=== PATIENT | female | born 1940 | race Asian ===

== ENCOUNTER 2018-09-21 09:15 | Emergency (ER) | payer MEDICARE, OTHER ==
[~2018-09-21] VITALS: Ht 152.4 cm; Wt 70.0 kg
[2018-09-21 09:21] VITALS: Ht 152.4 cm; Wt 70.0 kg
--- NOTE | 2018-09-21 09:28 | ERD ---
ER Documentation Chief Complaint Chief Complaint cp x 4 days HPI This 70-year-old female presents for evaluation of chest pain which is left- sided for about the last 4 days. She had a nuclear stress test done in 2016 which was negative, she denies any hemoptysis, or leg swelling. Her chest pain is currently resolved. She denies fever. There are no alleviating or aggravating factors. The discomfort has lasted hours, and then resolved. ROS All systems reviewed and are negative except as per history of present illness. Medications Home Meds Reported Medications Nitroglycerin* (Nitrostat*) 0.4 Mg Tab.subl, 0.4 MG SL Q5MIN PRN for CHEST PAIN, BOTTLE 09/21/18 Pravastatin Sodium* (Pravastatin Sodium*) 40 Mg Tablet, 40 MG PO HS, TAB 09/21/18 Ropinirole Hcl* (Ropinirole Hcl*) 1 Mg Tablet, 1 MG PO HS, TAB 09/21/18 Amlodipine Besylate* (Amlodipine Besylate*) 2.5 Mg Tablet, 2.5 MG PO DAILY, #30 TAB 09/21/18 Losartan-Hydrochlorothiazide (Losartan-HCTZ) 100-12.5 Mg Tab, 1 TAB PO DAILY, TAB 09/21/18 Aspirin* (Aspirin* Chew) 81 Mg Tab.chew, 81 MG PO DAILY, TAB.CHEW 09/21/18 Allergies Allergies: Coded Allergies: No Known Allergy (Unverified , 09/21/18) Physical Exam Vitals Vital Signs Date Temp Pulse Resp B/P (MAP) Pulse Ox O2 O2 Flow FiO2 Time Delivery Rate 09/21/18 98.1 80 18 226/88 99 09:21 (134) Physical Exam Const: No acute distress Head: Atraumatic Eyes: Normal Conjunctiva ENT: Normal External Ears, Nose and Mouth. Neck: Full range of motion. No meningismus. Resp: Clear to auscultation bilaterally Cardio: Regular rate and rhythm, no murmurs Abd: Soft, non tender, non distended. Normal bowel sounds Skin: No petechiae or rashes Back: No midline or flank tenderness Ext: No cyanosis, or edema Neur: Awake and alert Psych: Normal Mood and Affect Result Diagram: 09/21/18 0945 09/21/18 0945 Results 24 hrs Laboratory Tests Test 09/21/18 09:45 White Blood Count 4.4 10^3/ul Red Blood Count 3.91 10^6/ul Hemoglobin 12.0 g/dl Hematocrit 36.2 % Mean Corpuscular Volume 92.6 fl Mean Corpuscular Hemoglobin 30.7 pg Mean Corpuscular Hemoglobin Concent 33.1 g/dl Red Cell Distribution Width 12.1 % Platelet Count 177 10^3/UL Mean Platelet Volume 10.5 fl Immature Granulocytes % 0.000 % Neutrophils % 63.9 % Lymphocytes % 27.5 % Monocytes % 5.9 % Eosinophils % 1.8 % Basophils % 0.9 % Nucleated Red Blood Cells % 0.0 /100WBC Immature Granulocytes # 0.000 10^3/ul Neutrophils # 2.8 10^3/ul Lymphocytes # 1.2 10^3/ul Monocytes # 0.3 10^3/ul Eosinophils # 0.1 10^3/ul Basophils # 0.0 10^3/ul Nucleated Red Blood Cells # 0.0 10^3/ul Prothrombin Time 12.9 Sec Prothrombin Time Ratio 1.0 INR International Normalized Ratio 0.96 Sodium Level 142 mmol/L Potassium Level 3.8 mmol/L Chloride Level 108 mmol/L Carbon Dioxide Level 24 mmol/L Anion Gap 10 Blood Urea Nitrogen 21 mg/dl Creatinine 0.82 mg/dl Est Glomerular Filtrat Rate mL/min mL/min Glucose Level 182 mg/dl Calcium Level 9.3 mg/dl Total Bilirubin 0.4 mg/dl Direct Bilirubin 0.00 mg/dl Indirect Bilirubin 0.4 mg/dl Aspartate Amino Transf (AST/SGOT) 31 IU/L Alanine Aminotransferase (ALT/SGPT) 32 IU/L Alkaline Phosphatase 52 IU/L Troponin I < 0.012 ng/ml B-Type Natriuretic Peptide 270 PG/ML Total Protein 7.4 g/dl Albumin 4.3 g/dl Globulin 3.10 g/dl Albumin/Globulin Ratio 1.38 Procedures/MDM This is a 70-year-old female presents for evaluation of 4 days of chest pain. As noted above she had a cardiac workup with a nuclear stress test done in 2016 which was negative. Her cardiac workup including troponin x2 were both negative, and her EKG appears the same as her previous one. I offered her admission for further cardiac workup, however she preferred to follow-up with her primary care doctor who she actually has an appointment with tomorrow. Given this option, she will be discharged home, with strict return precautions, advised to return for any changes or worsening chest pain. CBC: no e/o of systemic infection or severe anemia CMP: no e/o severe acidosis, renal failure, diabetic ketoacidosis, liver disease Lipase: no e/o pancreatitis PT/INR: normal coagulation Troponin: no e/o acute ischemia Chest X-ray 1V Interpreted by me: Soft Tissue: No acute abnormalities Bones: No acute abnormalities Mediastinum/Cardiac Silhouette/Lungs: No acute abnormalities EKG: Rate/Rhythm: Normal Sinus Rhythm Intervals: Normal QRS, ST, T-waves: There are diffuse ST depressions noted, when compared with EKG from 2016 there are no changes. Impression: No evidence of ischemia or arrhythmia Departure Diagnosis: Primary Impression: Chest pain Chest pain type: unspecified Qualified Codes: R07.9 - Chest pain, unspecified Condition: Stable ANJUM GUTIÉRREZ MD Sep 21, 2018 09:28
[2018-09-21] MEDS ORDERED: LOSA1TAB28 PO (10:29)
[2018-09-21] MEDS ORDERED: AMLO2.5T78 PO (10:29)
[2018-09-21] MEDS ORDERED: ASPI-903 PO (10:29)
[2018-09-21] MEDS ORDERED: NITR0.4T39 SL (10:30)
[2018-09-21] MEDS ORDERED: ROPI1TAB PO (10:30)
[2018-09-21] MEDS ORDERED: PRAV40TA76 PO (10:30)
[2018-09-21 12:12] VITALS: BP 141/45; PULSE 72; RESP 20
== END 2018-09-21 13:10 | disposition home or self-care (01) ==
LOC: E/R 09:15
DX: R07.9 Chest pain, unspecified (principal); Z79.82 Long term (current) use of aspirin
CPT/HCPCS: 36415; 71045; 80053; 83880; 84484; 85025; 85610; 93005

== ENCOUNTER 2018-12-06 12:45 | Emergency (ER) | payer MEDICARE, OTHER ==
[~2018-12-06] VITALS: Ht 154.9 cm; Wt 67.0 kg
[~2018-12-06 12:45] MED LIST: AMLO2.5T78 PO; ASPI-903 PO; LOSA1TAB28 PO; NITR0.4T39 SL; PRAV40TA76 PO; ROPI1TAB PO
[2018-12-06 13:21] VITALS: Ht 154.9 cm; Wt 67.0 kg
--- NOTE | 2018-12-06 17:10 | ERD ---
ER Documentation Chief Complaint Chief Complaint SENT BY FOR SOB & ABNORMAL CHEST X-RAY X 2 WEEKS HPI 78-year-old female brought to the emergency department for evaluation of an abnormal CT scan. Patient is Kinyarwanda speaking. I am using staff as a registration clerk. Patient had a cough for 2 weeks without fever, chills, weight loss or any other symptoms. Patient sought an evaluation with her primary doctor who did a CT scan that noted an aneurysm without dissection of the thoracic aorta. Patient was referred to the emergency department for evaluation. Patient denies chest pain, shortness of breath or any other cardiovascular sy mptoms. ROS All systems reviewed and are negative except as per history of present illness. Medications Home Meds Reported Medications Nitroglycerin* (Nitrostat*) 0.4 Mg Tab.subl, 0.4 MG SL Q5MIN PRN for CHEST PAIN, BOTTLE 09/21/18 Pravastatin Sodium* (Pravastatin Sodium*) 40 Mg Tablet, 40 MG PO HS, TAB 09/21/18 Ropinirole Hcl* (Ropinirole Hcl*) 1 Mg Tablet, 1 MG PO HS, TAB 09/21/18 Amlodipine Besylate* (Amlodipine Besylate*) 2.5 Mg Tablet, 2.5 MG PO DAILY, #30 TAB 09/21/18 Losartan-Hydrochlorothiazide (Losartan-HCTZ) 100-12.5 Mg Tab, 1 TAB PO DAILY, TAB 09/21/18 Aspirin* (Aspirin* Chew) 81 Mg Tab.chew, 81 MG PO DAILY, TAB.CHEW 09/21/18 Allergies Allergies: Coded Allergies: No Known Allergy (Unverified , 09/21/18) PMhx/Soc Medical and Surgical Hx: pt denies Surgical Hx Hx Cardiac Disorders: Yes (HTN, High cholesterol) Hx Psychiatric Problems: No Hx Miscellaneous Medical Probl: No Hx Alcohol Use: No Hx Substance Use: No Hx Tobacco Use: No Smoking Status: Never smoker FmHx Supportive daughter at bedside Physical Exam Vitals Vital Signs Date Temp Pulse Resp B/P (MAP) Pulse Ox O2 O2 Flow FiO2 Time Delivery Rate 12/06/18 98.4 89 22 145/66 96 13:21 (92) Physical Exam GENERAL: The patient is well developed and appropriate for usual state of health in no apparent distress HEENT: Pupils equal, round, and reactive to light. EOMI. There is no scleral icterus. NECK: C-spine is soft and supple, there is no meningismus. There is no cervical lymphadenopathy. LUNGS: Clear to auscultation bilaterally. There are no rales, wheezes or rhonchi. HEART: Regular rate and rhythm, no murmurs, clicks, rubs or gallops. ABDOMEN: Soft, non-tender, non-distended. There are bowel sounds in all four quadrants. No rebound or guarding. EXTREMITIES: There is no peripheral cyanosis or edema. No focal swelling or erythema. NEURO: The patient moves all four extremities with 5/5 strength. Cranial nerves II - XII are intact. Normal gait. Alert and oriented SKIN: There is no apparent rash or petechiae. HEME/LYMPHATIC: There is no evidence of excessive bruising or lymphedema. PSYCHIATRIC: The patient does not appear anxious or depressed. Pulses: Present and equal bilaterally in all 4 extremities Result Diagram: 12/06/18 1630 12/06/18 1630 Results 24 hrs Laboratory Tests Test 12/06/18 16:30 White Blood Count 7.4 10^3/ul Red Blood Count 4.34 10^6/ul Hemoglobin 13.1 g/dl Hematocrit 39.6 % Mean Corpuscular Volume 91.2 fl Mean Corpuscular Hemoglobin 30.2 pg Mean Corpuscular Hemoglobin Concent 33.1 g/dl Red Cell Distribution Width 11.8 % Platelet Count 232 10^3/UL Mean Platelet Volume 10.5 fl Immature Granulocytes % 0.500 % Neutrophils % 64.0 % Lymphocytes % 27.9 % Monocytes % 6.3 % Eosinophils % 1.0 % Basophils % 0.3 % Nucleated Red Blood Cells % 0.0 /100WBC Immature Granulocytes # 0.040 10^3/ul Neutrophils # 4.7 10^3/ul Lymphocytes # 2.1 10^3/ul Monocytes # 0.5 10^3/ul Eosinophils # 0.1 10^3/ul Basophils # 0.0 10^3/ul Nucleated Red Blood Cells # 0.0 10^3/ul Sodium Level 139 mmol/L Potassium Level 4.2 mmol/L Chloride Level 103 mmol/L Carbon Dioxide Level 27 mmol/L Anion Gap 9 Blood Urea Nitrogen 24 mg/dl Creatinine 1.01 mg/dl Est Glomerular Filtrat Rate mL/min mL/min Glucose Level 127 mg/dl Calcium Level 9.7 mg/dl Procedures/MDM Patient was taken to a room, seen and evaluated. Comfort measures were initiated. Diagnostic tests were ordered and reviewed. 3 LEAD RHYTHM STRIP: [Normal sinus rhythm without ectopy] EK lead EKG reviewed by myself: [Normal Sinus Rhythm] LVH, nonspecific interventricular conduction delay [No ST elevation, depression, or T wave inversion] Impression: Abnormal, nonspecific EKG RADIOLOGY: Reviewed from the outside CT scan that was performed yesterday CONSULTATION: I spoke with Dr. Rosenthal and arranged outpatient follow up REEVALUATION: Patient remained asymptomatic in the emergency department MEDICAL DECISION MAKIN-year-old female presents the emergency department with essentially asymptomatic aortic aneurysm without dissection. Patient has no acute cardiovascular symptoms and is referred for outpatient cardiothoracic follow-up. Departure Diagnosis: Primary Impression: Aortic aneurysm Condition: Stable Patient Instructions: Abdominal Aortic Aneurysm (Stable) Referrals: MONET ROSENTHAL MD Additional Instructions: Please follow up with your doctor or the referral doctor this week. MANSI KATZ Dec 06, 2018 17:10
[2018-12-06] MEDS ORDERED: IODIXANOL LOCM 100 ML BTL ONE (17:22)
[2018-12-06] MEDS ORDERED: SOD CHLORIDE 0.9% 100 ML ONE (17:22)
[2018-12-06 17:33] VITALS: BP 153/56; PULSE 89; RESP 20
== END 2018-12-06 18:53 | disposition home or self-care (01) ==
LOC: E/R 12:45
DX: I71.9 Aortic aneurysm of unspecified site, without rupture (principal); I10 Essential (primary) hypertension; Z79.82 Long term (current) use of aspirin
CPT/HCPCS: 36415; 80048; 85025; 93005; 99284; Q9967